=== PATIENT | female | born 1960 | race Caucasian/White ===

== ENCOUNTER → 2016-09-11 | Outpatient (CLI) | payer OTHER ==
--- NOTE | 2016-09-13 10:13 | MM ---
Reason for exam: screening (asymptomatic). Last mammogram was performed 2 years ago. History: Patient is postmenopausal. Family history of breast cancer in maternal aunt. Physical Findings: A clinical breast exam by your physician is recommended on an annual basis and results should be correlated with mammographic findings. MG 3D Screening Mammo W/Cad Bilateral CC and MLO view(s) were taken. Prior study comparison: September 15, 2014, bilateral MG screening mammo w CAD. March 02, 2013, bilateral digital screening mammo w/CAD. October 16, 2010, bilateral digital screening mammo w/CAD. The breast tissue is heterogeneously dense. This may lower the sensitivity of mammography. No significant changes when compared with prior studies. ASSESSMENT: Negative, BI-RAD 1 RECOMMENDATION: Routine screening mammogram of both breasts in 1 year.
== END | disposition home or self-care (01) ==
LOC: RADMAMWWP 16:26
PROVIDERS: ATTEND Internal Medicine
DX: Z12.31 Encounter for screening mammogram for malignant neoplasm of breast (principal)
CPT/HCPCS: 77063; G0202

== ENCOUNTER → 2020-04-27 | Outpatient (CLI) | payer OTHER ==
--- NOTE | 2020-04-28 13:44 | MM ---
Reason for exam: screening (asymptomatic). Last mammogram was performed 3 years and 8 months ago. History: Patient is postmenopausal. Family history of breast cancer in maternal aunt. Physical Findings: A clinical breast exam by your physician is recommended on an annual basis and results should be correlated with mammographic findings. MG 3D Screening Mammo W/Cad Bilateral CC and MLO view(s) were taken. Prior study comparison: September 11, 2016, bilateral MG 3d screening mammo w/cad. September 15, 2014, bilateral MG screening mammo w CAD. The breast tissue is extremely dense which could obscure a lesion on mammography. Finding: There are indeterminate grouped/clustered calcifications in the left breast upper outer quadrant 6.4cm from the nipple and lower inner quadrant 8.2cm from the nipple. New finding since September 11, 2016 and September 15, 2014. ASSESSMENT: Incomplete: need additional imaging evaluation, BI-RAD 0 RECOMMENDATION: Special view mammogram of the left breast. [facility] will attempt to contact patient to return for supplemental views.
== END | disposition home or self-care (01) ==
LOC: RADMAMWWP 14:49
PROVIDERS: ATTEND Family Medicine
DX: Z12.31 Encounter for screening mammogram for malignant neoplasm of breast (principal)
CPT/HCPCS: 77063; 77067

== ENCOUNTER → 2020-05-20 | Outpatient (CLI) | payer OTHER ==
--- NOTE | 2020-05-23 09:47 | MM ---
Reason for exam: additional evaluation requested from abnormal screening. Last mammogram was performed 1 month ago. History: Patient is postmenopausal. Family history of breast cancer in maternal aunt. Physical Findings: Nurse did not find any significant physical abnormalities on exam. MG 3D Work Up W/Cad LT CC and MLO view(s) were taken of the left breast. Prior study comparison: April 27, 2020, bilateral MG 3d screening mammo w/cad. September 11, 2016, bilateral MG 3d screening mammo w/cad. The breast tissue is heterogeneously dense. This may lower the sensitivity of mammography. Finding: There are coarse heterogeneous, grouped/clustered calcifications in the 12 o'clock upper quadrant, middle position of the left breast 6cm from the nipple. New finding since April 27, 2020 and September 11, 2016. These results were verbally communicated with the patient and result sheet given to the patient on 05/20/20. ASSESSMENT: Suspicious, BI-RAD 4 RECOMMENDATION: Stereotactic core biopsy of the left breast. Called Dr. Parr's office with mammographic findings and has scheduled an appointment for the patient for 06/10/20 at 1:[address] Kaye. Biopsy scheduled for 06/16/20 at 8:00. PRELIMINARY REPORT CALLED AND FAXED TO DR. KAYE ON 05/23/20.
== END | disposition home or self-care (01) ==
LOC: RADMAMWWP 14:14
PROVIDERS: ATTEND Family Medicine
DX: R92.8 Other abnormal and inconclusive findings on diagnostic imaging of breast (principal)
CPT/HCPCS: 77061; 77065

== ENCOUNTER → 2020-06-10 | Outpatient (CLI) | payer OTHER ==
[2020-06-10 13:22] VITALS: BP 116/89; PULSE 70; RESP 16; TEMP 98.4
--- NOTE | 2020-06-10 13:47 | P.GSHP ---
History of Present Illness H&P Date: 06/10/20 Chief Complaint: microcalcifications left breast Jen is a 60 year old white female seen in consultation for Dr. Parr who had a routine screening mammogram performed on [id number]. This revealed an indeterminate group of calcifications in the left breast upper outer quadrant. No lesions of concern were seen in the right breast. It was recommended that she have additional views of the left breast performed. These were performed and [id number]. This revealed coarse heterogeneous calcifications in the 12:00 upper quadrant middle position of her left breast. This was considered suspicious BIRADS 4 and stereotactic core biopsy was recommended. The patient hendricks s not noted any lumps masses or nodules in her breast. She does have intermittent discomfort in the midportion of the left breast. The discomfort as aching in nature. The does not spread any place. It lasts several minutes and can occur several times in 1 day. It does not happen every day. She is not a trauma or infection in the breast. She has not had any biopsies of the breast. Caffeine: 1 cup of coffee/day Nicotine: Negative Theophylline: none Family History: maternal aunt: breast cancer Hormonal History: menarche: 15 [id number]:3 first born at 30, breast fed: yes menopause: 44 BCP: 5 years hormones: none Past surgical history: 1. gallbladder 2. tumor left ovary 3. colon punctured at colonoscopy Medical History: none Social History: smoke: none alcohol: occasional drugs: none - Constitutional Constitutional: Denies chills, Denies fever - EENT Eyes: denies blurred vision, denies pain Ears: deny: decreased hearing, tinnitus Ears, nose, mouth and throat: Denies headache, Denies sore throat - Breasts Breasts: bilateral: as per HPI - Cardiovascular Cardiovascular: Denies chest pain, Denies shortness of breath - Respiratory Respiratory: Denies cough, Denies 7 - Gastrointestinal Gastrointestinal: Reports as per HPI - Genitourinary (Female) Genitourinary: Denies dysuria, Denies hematuria - Menstruation Menstruation: Reports postmenopausal - 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 - Integumentary Comment: eczema isolated area of her left hand Integumentary: Denies pruritus, Denies rash - Neurological Neurological: Denies numbness, Denies weakness - Psychiatric Psychiatric: Reports depression, Denies anxiety - Endocrine Endocrine: Denies fatigue, Denies weight change - Hematologic/Lymphatic Comment: none - Allergic/Immunologic Allergic/Immunologic: Reports as per HPI Past Medical History Past Medical History: Sleep Apnea/CPAP/BIPAP History of Any Multi-Drug Resistant Organisms: None Reported Past Surgical History: Cholecystectomy Additional Past Surgical History / Comment(s): "some sort of tumor removed off of my left ovary "; bowel repair from punctured colon during colonoscopy; Past Anesthesia/Blood Transfusion Reactions: No Reported Reaction Past Psychological History: No Psychological Hx Reported Smoking Status: Vaper Past Alcohol Use History: Occasional Past Drug Use History: None Reported Medications and Allergies Home Medications Medication Instructions Recorded Confirmed Type Citalopram Hydrobromide [CeleXA] 20 mg PO HS 06/06/20 06/10/20 History Famotidine [Pepcid] 40 mg PO BID 06/06/20 06/10/20 History Allergies Allergy/AdvReac Type Severity Reaction Status Date / Time latex Allergy Rash/Hives Verified 06/10/20 13:16 Sulfa (Sulfonamide Allergy Rash/Hives Verified 06/10/20 13:16 Antibiotics) Surgical - Exam Vital Signs Temp Pulse Resp BP Pulse Ox 98.4 F 70 16 116/89 97 06/10/20 13:17 06/10/20 13:17 06/10/20 13:17 06/10/20 13:17 06/10/20 13:17 BMI 25 - General well developed, well nourished, no distress - Eyes normal ocular movement - ENT normal pinna, normal nares, no hearing loss - Neck no masses, trachea midline - Respiratory normal expansion, normal respiratory effort, clear to auscultation - Cardiovascular Rhythm: regular Heart Sounds: normal: S1, S2 - Abdomen Abdomen: soft, non tender, no guarding, no rigid, no rebound - Integumentary normal turgor - Neurologic no disoriented, no combative - Musculoskeletal normal gait - Psychiatric oriented to time, oriented to person, oriented to place, speech is normal, memory intact breast exam: BRA 36D inspection: grade 3 ptosis bilateral Palpation: Right breast: Multi-positional exam fibrocystic changes, no dominant masses or nodules of concern Right axilla: No adenopathy of concern Left breast: Multiple positional exam fibrocystic changes, no dominant masses or nodules of concern Left axilla: No adenopathy of concern Results Mammogram results reviewed Assessment and Plan Assessment: Impression: 1. Fibrocystic breast changes 2. Radiographic abnormality left breast Plan: 1. Stay tactic core biopsy left breast Risks and benefits of procedure discussed with the patient. Risks include but are not limited to bleeding, infection, reaction to the anesthetic. If the biopsy were to be discordant and its possible open biopsy could be recommended. Alternatives such as [place] awaiting open biopsy are discussed but not recommended. Patient understands risks and benefits and wished to proceed. Cc: Dr. Parr encounter 30 minutes > 50% of time in planning and counselling
== END | disposition home or self-care (01) ==
LOC: WWCWWP 12:44
PROVIDERS: ATTEND Surgery
DX: Z53.9 Procedure and treatment not carried out, unspecified reason (principal)

== ENCOUNTER → 2020-06-16 | Day surgery (SDC) | payer OTHER ==
[2020-06-16 07:18] VITALS: RESP 16
--- NOTE | 2020-06-16 08:40 | P.PCN ---
Date of Procedure: 06/16/20 Preoperative Diagnosis: Microcalcifications of concern in the left breast 12:00 upper quadrant Postoperative Diagnosis: Same Procedure(s) Performed: Stereotactic core biopsy left breast Anesthesia: local Surgeon: Shae Santana Pathology: other (Breast tissue/microcalcifications present in specimen) Condition: stable Disposition: same day Indications for Procedure: Microcalcifications of concern left breast 12:00 upper portion Operative Findings: Microcalcifications noted in the biopsy specimen Description of Procedure: Jen is a 52-year-old white female who was noted to have microcalcifications of concern in the left breast at the 12:00 upper position. She was recommended to undergo stereotactic core biopsy of the breast. Risk and benefits of the procedure including bleeding, infection or inability to sample the lesion were discussed with the patient as well as alternatives such as was radiating open biopsy which were not recommended. The patient understood and wished to proceed. The patient was taken to the stereotactic core biopsy room. She was positioned on the lower lid table. A director cpg film was obtained. The area of concern was identified. The lesion was approached via a CC from above approach. The lesion was targeted. The breast was prepped using Betadine. 20 mL of 1% lidocaine was used to anesthetize the area of concern. A 9-gauge vacuum- assisted core rotating biopsy needle was driven to the correct coordinates. This was fired. Post fire films were obtained. The needle was noted to be in the correct location. 12 specimens were obtained. Radiograph of the specimens revealed the calcifications of concern in the specimen. A secure august top hat clip was placed. We assured that hemostasis was attained. Radiograph confirmed the localizing clip to be in the correct location. The patient tolerated the procedure in stable condition. The specimen was sent to pathology. The patient will follow-up with Dr. Fajardo next week.
[2020-06-16 08:56] VITALS: BP 121/76; PULSE 71; TEMP 98.9
--- NOTE | 2020-06-16 10:35 | MM ---
EXAMINATION TYPE: MG stereo VAD BX LT DATE OF EXAM: 06/16/2020 COMPARISON: Prior mammogram 04/27/2020, 05/20/2020 CLINICAL HISTORY: Abnormal mammogram TECHNIQUE: Stereotactic guided core biopsy of left breast. FINDINGS: The procedure of stereotactic guided core biopsy was explained to the patient. Benefits, alternatives, and risks were discussed. An informed consent was then obtained. Dr. Scotty Hernandez performed the remainder of the procedure. A vacuum assisted biopsy gun was used to obtain multiple core samples. The patient tolerated the procedure well without any immediate complication. The patient was kept in the radiology department for short stay after the procedure and then discharged home in stable condition. Targeted calcifications are identified in specimen mammogram. Post biopsy digital left mammogram shows the clip to appear in satisfactory position relative to the targeted area of concern on the preprocedure images. IMPRESSION: SUCCESSFUL, UNCOMPLICATED STEREOTACTIC GUIDED CORE BIOPSY OF AREA OF CONCERN IN THE left BREAST, FULL PATHOLOGY RESULTS TO FOLLOW. Pathology Results: Benign LEFT BREAST, STEREOTACTIC CORE BIOPSY: Fibroadenomatoid hyperplasia with calcifications in a background of fibrocystic changes. Recommendation Follow up mammogram of the left breast in 6 months. [facility]
== END ==
LOC: RADMAMWWP 06:56
PROVIDERS: ATTEND Surgery
DX: N60.82 Other benign mammary dysplasias of left breast (principal); N60.12 Diffuse cystic mastopathy of left breast
CPT/HCPCS: 88305; 19081; A4648; J2001

== ENCOUNTER → 2020-06-23 | Outpatient (CLI) | payer OTHER ==
[2020-06-23 13:53] VITALS: BP 120/80; PULSE 88; RESP 18; TEMP 98.7
--- NOTE | 2020-06-23 14:01 | P.PN ---
Subjective Progress Note Date: 06/23/20 Principal diagnosis: Stereotactic core biopsy left breast/fibroadenomatoid hyperplasia Jen is a 60-year-old white female status post left breast stereotactic core biopsy on . Pathology revealed fibroadenomatoid hyperplasia with calcifications in a background of fibrocystic changes. The patient does not have any complaints related to the procedure. Objective - Vital Signs Vital signs: Vital Signs Temp 98.7 F 06/23/20 13:49 Pulse 88 06/23/20 13:49 Resp 18 06/23/20 13:49 BP 120/80 06/23/20 13:49 Pulse Ox 96 06/23/20 13:49 Intake & Output 06/22/20 06/23/20 06/23/20 18:59 06:59 18:59 Weight 69.4 kg - Exam BMI 25.5 - Constitutional General appearance: Present: average body habitus - EENT Eyes: Present: EOMI ENT: Present: hearing grossly normal - Neck Neck: Present: normal ROM - Respiratory Respiratory: bilateral: CTA - Cardiovascular Rhythm: regular Heart sounds: normal: S1, S2 - Integumentary Integumentary Comment(s): mild ecchymosis of biopsy site, no evidence of infection Integumentary: Present: normal turgor Assessment and Plan Assessment: Impression: 1. Fibroadenomatoid hyperplasia stereotactic core biopsy left breast Plan: 1. Left breast mammogram in 6 months with physician exam at that time Cc: Dr. Vega encounter j10 minutes, > 50% of time in planning and counselling
== END | disposition home or self-care (01) ==
LOC: WWCWWP 13:43
PROVIDERS: ATTEND Surgery
DX: Z53.9 Procedure and treatment not carried out, unspecified reason (principal)

== ENCOUNTER 2020-08-03 09:06 | Day surgery (SDC) | payer OTHER ==
[2020-07-27 13:46] VITALS: BMI 25.0
[~2020-08-03 09:06] MED LIST: LACTATED RINGERS 1,000 ML IV SCH
[2020-08-03 09:48] VITALS: RESP 16; TEMP 97
[2020-08-03] MEDS ORDERED: LIDOCAINE 1% (10MG/ML) FOR IV START INTRADERMA ONE (09:49)
[2020-08-03] MEDS ORDERED: fentaNYL (PF) 50 MCG/ML 2 ML AMP ONE (10:03)
[2020-08-03] MEDS ORDERED: PROPOFOL 10 MG/ML 20 ML VIAL IV ONE (10:03)
[2020-08-03] MEDS ORDERED: MIDAZOLAM 2 MG/2 ML VIAL ONE (10:03)
[2020-08-03] MEDS ORDERED: LIDOCAINE 1% INJ 10MG/ML (20 ML MDV) ONE (10:03)
--- NOTE | 2020-08-03 10:32 | P.PCN ---
Date of Procedure: 08/03/20 Procedure(s) Performed: BRIEF HISTORY: Patient is a 60-year-old pleasant female scheduled for an elective colonoscopy as a part of evaluation of screening for colorectal neoplasia. Her last colonoscopy was 5 years ago and has not procedure with a colon perforation. PROCEDURE PERFORMED: Colonoscopy. PREOPERATIVE DIAGNOSIS: Screening for colon cancer. IV sedation per Anesthesia. PROCEDURE: After informed consent was obtained, the patient, was brought into the endoscopy unit. IV sedation was administered by Anesthesia under continuous monitoring. Digital rectal examination was normal. Initially the Olympus CF-160 flexible video colonoscope was then inserted in the rectum, gradually advanced into the cecum without any difficulty. Careful examination was performed as the scope was gradually being withdrawn. Ileocecal valve and the appendiceal orifice were visualized and appeared normal. Prep was excellent. Mucosa of the cecum, ascending colon, transverse colon, descending colon, sigmoid colon, and rectum appeared normal. Retroflexion was performed in the rectum and no lesions were seen. The patient tolerated the procedure well. IMPRESSION: Normal-appearing colon from rectum to cecum with no evidence of colorectal neoplasia. RECOMMENDATIONS: Findings of this examination were discussed with the patient .She was advised to have a repeat screening colonoscopy in 10 years..
[2020-08-03 11:04] VITALS: BP 97/56; PULSE 64
== END 2020-08-03 11:30 | disposition home or self-care (01) ==
LOC: ORWHC2ENDO 09:06
PROVIDERS: ATTEND Internal Medicine Gastroenterology
DX: Z12.11 Encounter for screening for malignant neoplasm of colon (principal); G47.33 Obstructive sleep apnea (adult) (pediatric); K21.9 Gastro-esophageal reflux disease without esophagitis; Z86.010 Personal history of colon polyps; Z79.899 Other long term (current) drug therapy; Z98.890 Other specified postprocedural states; Z87.19 Personal history of other diseases of the digestive system; Z91.040 Latex allergy status; Z88.2 Allergy status to sulfonamides; Z99.89 Dependence on other enabling machines and devices; Z90.49 Acquired absence of other specified parts of digestive tract
CPT/HCPCS: J2250; J2001; J3010; J2704; G0105; 45378

== ENCOUNTER → 2020-12-16 | Outpatient (CLI) | payer OTHER ==
--- NOTE | 2020-12-19 10:03 | MM ---
Reason for exam: follow-up at short interval from prior study. Last mammogram was performed 7 months ago. History: Patient is postmenopausal. Family history of breast cancer in maternal aunt. Benign MG stereo VAD BX LT of the left breast, June 16, 2020. Physical Findings: Nurse did not find any significant physical abnormalities on exam. MG 3D Diag Mammo W/Cad LT CC and MLO view(s) were taken of the left breast. Prior study comparison: May 20, 2020, left breast MG 3d work up w/cad LT. April 27, 2020, bilateral MG 3d screening mammo w/cad. The breast tissue is heterogeneously dense. This may lower the sensitivity of mammography. Previous mammotome biopsy in the left breast. No significant new findings when compared with previous films. These results were verbally communicated with the patient and result sheet given to the patient on 12/16/20. ASSESSMENT: Benign, BI-RAD 2 RECOMMENDATION: Return to routine screening mammogram schedule for both breasts. Back on schedule.
== END | disposition home or self-care (01) ==
LOC: RADMAMWWP 11:25
PROVIDERS: ATTEND Surgery
DX: R92.8 Other abnormal and inconclusive findings on diagnostic imaging of breast (principal); Z78.0 Asymptomatic menopausal state; Z80.3 Family history of malignant neoplasm of breast
CPT/HCPCS: 77061; 77065

== ENCOUNTER → 2020-12-23 | Outpatient (CLI) | payer OTHER ==
[2020-12-23 11:45] VITALS: BP 107/65; PULSE 87; RESP 18; TEMP 98
--- NOTE | 2020-12-23 11:57 | P.PN ---
Subjective Progress Note Date: 12/23/20 Principal diagnosis: Surveillance/fibrocystic breast changes Jen is a 60 year old white female seen in consultation for Dr. Vega who [place] [id number]. This revealed an indeterminate group of calcifications in the left breast upper outer quadrant. No lesions of concern were seen in the right breast. It was recommended that she have additional views of the left breast performed. These were performed and [id number]. This revealed coarse heterogeneous calcifications in the 12:00 upper quadrant middle position of her left breast. This was considered suspicious BIRADS 4 and stereotactic core biopsy was recommended. The patient h ad not noted any lumps masses or nodules in her breast. She did have intermittent discomfort in the midportion of the left breast. The discomfort was aching in nature. This did not spread any place. She underwent a stereotactic core biopsy on [id number]. Pathology revealed fibroadenomatoid hyperplasia with calcifications and a background of fibrocystic changes. [place] [id number]. This was felt to be benign BIRADS 2. She is not complaining of any new lumps masses or nodules of concern in either breast. She is not complaining of any nipple discharge or skin changes. Caffeine: 1 cup of coffee/day Nicotine: Negative Theophylline: none Family History: maternal aunt: breast cancer Hormidonal History: menarche: 15 [id number]:3 first born at 30, breast fed: yes menopause: 44 BCP: 5 years hormones: none Past surgical history: 1. gallbladder 2. tumor left ovary 3. colon punctured at colonoscopy Medical History: none Social History: smoke: none alcohol: occasional drugs: none - Constitutional Constitutional: Denies chills, Denies fever - EENT Eyes: denies blurred vision, denies pain Ears: deny: decreased hearing, tinnitus Ears, nose, mouth and throat: Denies headache, Denies sore throat - Breasts Breasts: bilateral: as per HPI - Cardiovascular Cardiovascular: Denies chest pain, Denies shortness of breath - Respiratory Respiratory: Denies cough - Gastrointestinal Gastrointestinal: Reports as per HPI - Genitourinary (Female) Genitourinary: Denies dysuria, Denies hematuria - Menstruation Menstruation: Reports postmenopausal - 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 - Integumentary Comment: eczema isolated area of her left hand Integumentary: Denies pruritus, Denies rash - Neurological Neurological: Denies numbness, Denies weakness - Psychiatric Psychiatric: Reports depression, Denies anxiety - Endocrine Endocrine: Denies fatigue, Denies weight change - Hematologic/Lymphatic Comment: none - Allergic/Immunologic Allergic/Immunologic: Reports as per HPI Objective - Vital Signs Vital signs: Vital Signs Temp 98.0 F 12/23/20 11:40 Pulse 87 12/23/20 11:40 Resp 18 12/23/20 11:40 BP 107/65 12/23/20 11:40 Pulse Ox 95 12/23/20 11:40 Intake & Output 12/22/20 12/23/20 12/23/20 18:59 06:59 18:59 Weight 68.039 kg - Constitutional General appearance: Present: average body habitus - EENT Eyes: Present: EOMI ENT: Present: hearing grossly normal - Neck Neck: Present: normal ROM - Respiratory Respiratory: bilateral: CTA - Cardiovascular Rhythm: regular Heart sounds: normal: S1, S2 - Integumentary Integumentary: Present: normal turgor - Musculoskeletal Musculoskeletal: Present: gait normal - Psychiatric Psychiatric: Present: A&O x's 3, appropriate affect, intact judgment & insight - Additional findings Additional findings: breast exam: BRA: 36D inspection: grade 2/3 ptosis bilateral Palpation: Right breast: Multi-positional exam fibrocystic changes, right breast slightly larger than left breast Right axilla: No adenopathy of concern Left breast: Multi-positional exam fibrocystic changes no dominant masses or nodules of concern area of biopsy well-healed still slightly tender to palpation Left axilla: No adenopathy of concern Assessment and Plan Assessment: Impression: 1. Fibrocystic breast changes 2. Nothing to 1 interventional biopsy of the breast at this time 3. Recent left breast mammogram benign BIRADS 2 Plan: 1. Repeat bilateral mammogram in 6 months with physician exam at that time Cc: Dr. Vega
== END ==
LOC: WWCWWP 11:34
PROVIDERS: ATTEND Surgery
DX: N60.11 Diffuse cystic mastopathy of right breast (principal); Z91.040 Latex allergy status; Z88.2 Allergy status to sulfonamides

== ENCOUNTER → 2021-03-01 | Outpatient (CLI) | payer OTHER ==
--- NOTE | 2021-03-01 14:59 | MR ---
EXAMINATION TYPE: MR brain wo con DATE OF EXAM: 03/01/2021 2:36 PM COMPARISON: NONE HISTORY: Repeated falls FINDINGS: The ventricles, basal cisterns and sulci overlying the cerebral convexities are mildly enlarged. There is evidence of mild periventricular white matter ischemic demyelination. Remote deep white matter insults are also noted. No acute edema is seen on diffusion weighted imaging. There is no evidence for midline shift or mass effect. Acute intracranial hemorrhage or extra-axial collection is not evident. The paranasal sinuses and mastoid air cells are well-aerated. IMPRESSION: Age-related atrophic and chronic small vessel ischemic change. No acute intracranial process at this time.
== END | disposition home or self-care (01) ==
LOC: RADMRIMAIN 13:46
PROVIDERS: ATTEND Nurse Practitioner
DX: I67.82 Cerebral ischemia (principal); R29.6 Repeated falls; G31.9 Degenerative disease of nervous system, unspecified
CPT/HCPCS: 70551

== ENCOUNTER → 2021-04-02 | Outpatient (CLI) | payer OTHER ==
--- NOTE | 2021-04-02 15:23 | MR ---
EXAMINATION TYPE: MR cervical spine wo/w con DATE OF EXAM: 04/02/2021 COMPARISON: None HISTORY: Cervical Spondylosis, neck pain, numbness, hendricks TECHNIQUE: Multiplanar, multisequence images of the cervical spine were acquired utilizing 7 mL intravenous Gada vist gadolinium contrast. Diffusion weighted imaging was performed. C2-C3: No evidence for degenerative disc disease. No disc bulge/herniation or protrusion. No Canal stenosis. Foramina are patent bilaterally. C3-C4: Mild posterior extension endplate disc complex effaces the anterior thecal sac. No significant foraminal encroachment or spinal stenosis. C4-C5: There is mild posterior extension endplate disc complex effacing the anterior thecal sac. Some uncovertebral joint hypertrophy causes minimal encroachment on the right neural foramen. C5-C6: Posterior extension endplate disc complex effaces the anterior thecal sac. Uncovertebral joint hypertrophy results in bilateral severe foraminal encroachment. No significant spinal stenosis. C6-C7: No evidence for degenerative disc disease. No disc bulge/herniation or protrusion. No Canal stenosis. Foramina are patent bilaterally. C7-T1: No evidence for degenerative disc disease. No disc bulge/herniation or protrusion. No Canal stenosis. Foramina are patent bilaterally. Cervical segments are intact. There is normal alignment. Cervical spinal cord is of normal signal. Craniovertebral junction relationships are within normal limits. There is multilevel spondylosis. C ervical vertebral bodies show preserved height. There is endplate discogenic marrow signal change, lo ss of disc height signal at C4-5 and C5-6. No abnormal enhancement following contrast administration. IMPRESSION: Degenerative disc disease, foraminal encroachment greatest at C5-6.
== END | disposition home or self-care (01) ==
LOC: RADMRIMAIN 11:06
PROVIDERS: ATTEND Psychiatry & Neurology Neurology
DX: M50.322 Other cervical disc degeneration at C5-C6 level (principal)
CPT/HCPCS: 72156; A9585

== ENCOUNTER → 2022-08-01 | Outpatient (CLI) | payer OTHER ==
--- NOTE | 2022-08-02 16:45 | MM ---
Reason for Exam: Screening (asymptomatic). Last mammogram was performed 2 year(s) and 3 month(s) ago. Patient History: Menarche at age 15. First Full-Term at age 30. Postmenopausal. Patient has history of breast feeding. 06/16/2020, Benign Core Biopsy on the left side. Maternal aunt had breast cancer. Risk Values: Cammy 5 year model risk: 1.9%. NCI Lifetime model risk: 9.5%. Prior Study Comparison: 04/27/2020 Bilateral Screening Mammogram, [facility]. 05/20/2020 Left Diagnostic Mammogram, [facility]. 12/16/2020 Left Diagnostic Mammogram, [facility]. Tissue Density: The breast tissue is heterogeneously dense. This may lower the sensitivity of mammography. Findings: Analyzed By CAD. Scattered benign calcifications are present. No significant interval changes are evident. Core markers within the left breast. No suspicious groups of microcalcifications, spiculated or lobular masses, architectural distortion or other secondary signs of malignancy are mammographically apparent. Overall Assessment: Benign, BI-RAD 2 Management: Screening Mammogram of both breasts in 1 year. A negative mammogram report should not preclude additional follow up of suspicious palpable abnormalities. Patient should continue monthly self breast exam. A clinical breast exam by your physician is recommended on an annual basis and results should be correlated with mammographic findings. Electronically signed and approved by: Jose Cruz Kirby D.O. Radiologis
== END | disposition home or self-care (01) ==
LOC: RADMAMWWP 16:12
PROVIDERS: ATTEND Family Medicine
DX: Z12.31 Encounter for screening mammogram for malignant neoplasm of breast (principal); Z78.0 Asymptomatic menopausal state; Z80.3 Family history of malignant neoplasm of breast
CPT/HCPCS: 77063; 77067

== ENCOUNTER → 2024-06-12 | Outpatient (CLI) | payer OTHER ==
--- NOTE | 2024-06-13 18:01 | BD ---
EXAMINATION TYPE: Axial Bone Density DATE OF EXAM: 06/12/2024 CLINICAL HISTORY: 64 years old Female. ICD-10 CODE: M85.9 Disorder of bone , Additional History: Height: 63.5 in Weight: 169 lbs FRAX RISK QUESTIONS: Secondary Osteoporosis: 3. Menopause before 45: yes age 44 EXAM MEASUREMENTS: Bone mineral densitometry was performed using the [employer] System. Bone mineral density as measured about the Lumbar spine is: ----- L1-L4(G/cm2): 1.165 T Score Values are as follows: ----- L1: -0.6 ----- L2: -1.5 ----- L3: 1.0 ----- L4: 0.5 ----- L1-L4: -0.1 Z Score Values are as follows: ----- L1: 0.3 ----- L2: -0.6 ----- L3: 2.0 ----- L4: 1.4 ----- L1-L4: 0.8 Bone mineral density baseline Bone mineral density about the R hip (g/cm2): 0.886 Bone mineral density about the L hip (g/cm2): 0.867 T Score values are as follows: -----R Neck: -1.9 -----L Neck: -1.9 -----R Total: -1.0 -----L Total: -1.1 Z Score values are as follows: -----R Neck: -0.8 -----L Neck: -0.8 -----R Total: -0.2 -----L Total: -0.4 Bone mineral density baseline FRAX%s: The graph provided illustrates a 9.5% chance for a major osteoporotic fx and a 1.2% chance fo r the hips probability for fx in 10 years time. IMPRESSION: Osteopenia (T Score between -2.5 and -1). There is slightly increased risk of fracture and the patient may be considered for treatment. Re-Screen 2-5 years. NOTE: T-SCORE=SD OF THE YOUNG ADULT MEAN. [facility], , 06/13/2024 5:59 PM
== END | disposition home or self-care (01) ==
LOC: RADBDWWP 12:49
PROVIDERS: ATTEND Family Medicine
DX: M85.9 Disorder of bone density and structure, unspecified (principal)
CPT/HCPCS: 77080